=== PATIENT | male | born 1990 | race Caucasian/White ===

== ENCOUNTER 2021-04-09 22:17 | Emergency (ER) | payer OTHER ==
[~2021-04-09] VITALS: Ht 190.5 cm; Wt 67.6 kg
[2021-04-09] MEDS ORDERED: ADDERALL XR 3030 MG PO (22:30)
[2021-04-09] MEDS ORDERED: XANAX1 MG PO (22:30)
[2021-04-09 22:44] LABS: ABSOLUTE BASOPHILS 0.1 thou/uL (0.0-0.2); ABSOLUTE EOSINOPHILS 0.3 thou/uL (0.0-0.7); ABSOLUTE LYMPHOCYTES 2.6 thou/uL (0.8-5.3); ABSOLUTE MONOCYTES 0.8 thou/uL (0.0-1.2); ABSOLUTE NEUTROPHILS 4.7 thou/uL (1.6-8.1); BASOPHILS 0.6 %; HEMATOCRIT 40.9 % (42.0-52.0); HEMOGLOBIN 13.7 gm/dL (14.0-18.0); LYMPHOCYTES 31.2 %; MCH 28.6 pg (26.0-34.0); MCHC 33.5 g/dL (28.0-37.0); MCV 85.2 fL (80.0-100.0); MONOCYTES 9.6 %; MPV 6.6 fl. (7.2-11.1); NUCLEATED RBCS 0 /100WBC; PLATELET COUNT* 204 thou/uL (150-400); POLYS 55.6 %; RBC 4.81 mil/uL (4.50-6.00); RDW-CV 13.2 % (10.5-14.5); WBC 8.5 thou/uL (4.0-11.0)
[2021-04-09 23:04] LABS: CALCIUM 8.7 mg/dL (8.5-10.1); POTASSIUM 3.6 mmol/L (3.5-5.1)
[2021-04-09 23:08] LABS: ALBUMIN 4.7 g/dL (3.4-5.0); TOTAL BILIRUBIN 0.8 mg/dL (<0.1-1.0); TOTAL PROTEIN 7.8 g/dL (6.4-8.2)
[2021-04-10 00:01] LABS: AMP/METHAMP POSITIVE (Negative); BARBITURATES Negative (Negative); BENZODIAZEPINES Negative (Negative); COCAINE Negative (Negative); METHADONE Negative (Negative); OPIATES POSITIVE (Negative); PCP Negative (Negative); THC POSITIVE (Negative)
[2021-04-10 00:11] LABS: URINE BLOOD NEGATIVE (Negative); URINE CLARITY CLEAR; URINE COLOR YELLOW; URINE GLUCOSE-RANDOM NEGATIVE (Negative); URINE KETONES 2+ (Negative); URINE LEUKOCYTES-REFLEX NEGATIVE (Negative); URINE NITRITE-REFLEX NEGATIVE (Negative); URINE PROTEIN NEGATIVE (Negative); URINE SPECIFIC GRAVITY >= 1.030 (1.005-1.030); URINE UROBILINOGEN 0.2 E.U./dl (0.2-1.0)
[2021-04-10 00:13] LABS: URINE BILIRUBIN 1+ (Negative)
[2021-04-10 00:20] LABS: ICTOTEST (BILI CONFIRMATORY) Negative (Negative)
[2021-04-10 00:53] VITALS: BP 108/62
--- NOTE | 2021-04-10 11:35 | EKG ---
[place] [address] ELECTROCARDIOGRAM REPORT Name: MARIA A SINGLETON Room: [facility]#: [id number] Admission: 04/09/21 Attend Phys: Discharge: 04/10/21 Date of : 88 Date of Service: 04/09/212250 Report #: [id number] THIS REPORT FOR: //name// [facility] ED Test Date: 2021-04-09 Test Time: 22:51:17 Pat Name: MARIA A SINGLETON Department: Room: Gender: [employer] Supervisor: CELIO : 1990 Requested By: Pernell Saxena Order Number: [id number] MD: Harsha Leonard Measurements Intervals [place] Rate: 61 P: 56 CT: 129 QRS: 17 QRSD: 115 T: 65 QT: 424 QTc: 427 Interpretive Statements Sinus rhythm Incomplete right bundle branch block No previous ECG available for comparison Electronically Signed On 04-10-2021 11:35:12 CDT by Harsha Leonard [email or web address] <ELECTRONICALLY SIGNED> By: Harsha Leonard MD, [facility] 04/10/21 1135 50 50 Harsha Leonard MD, [facility] /EPI
== END 2021-04-10 00:55 | disposition home or self-care (01) ==
LOC: M.ERS 22:17
PROVIDERS: Nurse Practitioner Psychiatric/Mental Health
DX: T67.8XXA Other effects of heat and light, initial encounter (principal); Z20.822 Contact with and (suspected) exposure to COVID-19; X30.XXXA Exposure to excessive natural heat, initial encounter; Y93.89 Activity, other specified; Y92.89 Other specified places as the place of occurrence of the external cause; Y99.8 Other external cause status